=== PATIENT | female | born 1970 | race Caucasian/White ===

== ENCOUNTER → 2021-06-29 | Outpatient (CLI) | payer BC ==
[~2021-06-29] MED LIST: ALLEGRA ALLERG180 MG PO; Amaryl1 MG PO; BUDE10.22 INH; CETI5 PO; GLIM2 PO; META800 PO; MONT10T PO; PROAIR RESPICL90 MCG INH; Pyridium100 MG PO
== END | disposition home or self-care (01) ==
LOC: LAB 07:05 → LAB SHORT 07:05
DX: N76.0 Acute vaginitis (principal); N39.0 Urinary tract infection, site not specified
CPT/HCPCS: 87086

== ENCOUNTER → 2023-12-25 | Outpatient (CLI) | payer OTHER ==
[2024-01-10 11:41] LABS: HPV HIGH RISK BY TMA Not Detected; HPV SOURCE Cervical
== END ==
LOC: LAB 08:45 → LAB SHORT 08:45
PROVIDERS: Family Medicine
DX: Z01.419 Encounter for gynecological examination (general) (routine) without abnormal findings (principal)
CPT/HCPCS: 87624; G0123

== ENCOUNTER → 2024-09-02 | Outpatient (CLI) | payer OTHER ==
[2024-09-02 12:58] LABS: Adenovirus F 40/41 Not Detected (NOT DETECT); Astrovirus Not Detected (NOT DETECT); Campylobacter Sp Not Detected (NOT DETECT); Cryptosporidium Not Detected (NOT DETECT); Cyclospora Cayetanensis Not Detected (NOT DETECT); E. Coli O157 Not Detected (NOT DETECT); Entamoeba Histolytica Not Detected (NOT DETECT); Enteroaggregative E. coli-EAEC Not Detected (NOT DETECT); Enteropathogenic E. coli-EPEC Not Detected (NOT DETECT); Enterotoxigenic E. coli-ETEC Not Detected (NOT DETECT); Giardia Lamblia Not Detected (NOT DETECT); Norovirus GI/GII Not Detected (NOT DETECT); Plesiomonas Shigelloides Not Detected (NOT DETECT); Rotavirus A Not Detected (NOT DETECT); Salmonella Sp Not Detected (NOT DETECT); Sapovirus Not Detected (NOT DETECT); Shiga Toxin-prod E. coli-STEC Not Detected (NOT DETECT); Shigella/Enteroin E. coli-EIEC Not Detected (NOT DETECT); Vibrio Cholerae Not Detected (NOT DETECT); Vibrio Sp Not Detected (NOT DETECT); Yersinia Enterocolitica Not Detected (NOT DETECT)
== END ==
LOC: LAB 07:14 → LAB SHORT 07:14
PROVIDERS: Internal Medicine
DX: R19.7 Diarrhea, unspecified (principal)
CPT/HCPCS: 87507

== ENCOUNTER 2025-01-26 16:14 | Emergency (ER) | payer OTHER ==
[~2025-01-26] VITALS: Ht 162.6 cm; Wt 129.3 kg
[2025-01-26] MEDS ORDERED: Ondansetron HCl 2 MG / ML 2ML Vial IV PRN (16:25)
[2025-01-26 16:35] LABS: Hematocrit 40.7 % (33.0-51.0); Hemoglobin 12.8 g/dL (11.5-16.0); Mean Corpuscular HGB Conc 31.4 g/dL (31.5-36.5); Mean Corpuscular Volume 84 fL (80-100); NRBC ABSOLUTE 0.00 K/mm3 (0.00-0.02); NRBC Auto 0.0 /100 WBC (0.0-0.2); Platelet Count 184 K/mm3 (150-400); RDW Coefficient Variation 15.1 % (11.7-14.2); RDW Standard Deviation 46.2 fL (35.1-46.3)
[2025-01-26] MEDS ORDERED: FentaNYL Citrate 50 MCG/ML 2 ML Injection IV ONE ×2 (16:35→17:45)
[2025-01-26] MEDS ORDERED: Lidocaine 2% Viscous Soln 15 ML UDC PO ONE ×2 (16:35→19:25)
[2025-01-26] MEDS ORDERED: Pantoprazole Sodium 40 MG Injection IV ONE (16:35)
[2025-01-26 16:59] LABS: Alanine Aminotransfer (ALT/SGP 29.0 U/L (12-78); Albumin, Blood 3.8 g/dL (3.4-5.0); Albumin/Globulin Ratio 1.2 (0.8-1.8); Anion Gap 5.0 mmol/L (3-11); Aspartate Aminotrans (AST/SGOT 45.0 U/L (12-37); Bilirubin, Total 0.4 mg/dL (0.1-1.0); Blood Urea Nitrogen 19.0 mg/dL (8-24); CO2, Blood 28.0 mmol/L (21-32); Calcium, Blood 8.8 mg/dL (8.5-10.1); Chloride, Blood 108.0 mmol/L (98-108); Creatinine, Blood 0.98 mg/dL (0.40-1.00); Globulin, Blood 3.2 g/dL (2.2-4.0); Glucose, Blood 126.0 mg/dL (70-99); Potassium, Blood 4.0 mmol/L (3.5-5.5); Sodium, Blood 137.0 mmol/L (136-145); Total Protein, Blood 7.0 g/dL (6.4-8.2)
[2025-01-26] MEDS ORDERED: Metoclopramide HCl 5MG / ML 2ML Vial IV ONE (17:25)
[2025-01-26 17:27] LABS: BASOPHILS ABSOLUTE MAN 0.22 K/mm3 (0.00-0.23); BASOPHILS PERCENT MAN 2 % (0-2); EOSINOPHILS ABSOLUTE MAN 0.22 K/mm3 (0.00-0.68); EOSINOPHILS PERCENT MAN 2 % (0-6); LYMPHOCYTES ABSOLUTE MAN 3.47 K/mm3 (0.84-5.20); LYMPHOCYTES PERCENT MAN 31 % (21-46); MONOCYTES ABSOLUTE MAN 0.44 K/mm3 (0.16-1.47); MONOCYTES PERCENT MAN 4 % (4-13); NEUTROPHILS ABSOLUTE MAN 6.84 K/mm3 (1.96-9.15); SEG NEUTROPHILS PERCENT MAN 61 % (41-73)
[2025-01-26] MEDS ORDERED: Haloperidol Lactate Inj. 5 MG/ML Injection IV ONE (17:45)
[2025-01-26 18:17] VITALS: BP 161/80
[2025-01-26] MEDS ORDERED: Protonix40 MG PO (19:55)
[2025-01-26] MEDS ORDERED: ONDA4ODT MM (19:55)
[2025-01-26] MEDS ORDERED: RX Prepack 2 Tabs Ondansetron ODT 4MG UD ONE (20:05)
== END 2025-01-26 20:26 | disposition home or self-care (01) ==
LOC: ER 16:14
PROVIDERS: Emergency Medicine
DX: R16.1 Splenomegaly, not elsewhere classified (principal); R59.0 Localized enlarged lymph nodes; R11.2 Nausea with vomiting, unspecified; Z79.51 Long term (current) use of inhaled steroids; Z79.899 Other long term (current) drug therapy; Z88.2 Allergy status to sulfonamides; Z88.0 Allergy status to penicillin; Z91.040 Latex allergy status; Z91.048 Other nonmedicinal substance allergy status
CPT/HCPCS: 71046; 74177; 80053; 83690; 84484; 85025; 93005; 93010; 96374-59; 96375; 96376; 99285-25; A9270; J2405; J2470; J2765; J3010; Q9967

== ENCOUNTER 2025-02-27 10:36 | Day surgery (SDC) | payer OTHER ==
[~2025-02-27 10:36] MED LIST changes: +ONDA4ODT MM; +Protonix40 MG PO
--- NOTE | 2025-02-27 12:59 | NUR ---
11:53 PT TRANSPORTED TO RADIOLOGY RECOVERY AREA BY BED OPERATOR. PT A&OX4, DENIES PAIN, ABLE TO MOVE SELF ON GURNEY. LCTAB, HRR. 11:55 - BP 127/64, HR 78, O2 94% ORA, TEMP 97.3, RR 20. PT DENIES DIZZINESS, LIGHTHEADEDNESS, OR SOB. RATES PAIN 1/10 AND DESCRIBES IT A "DULL ACHE". BAND-AID INTACT WITH ONE PINPOINT SPOT OF SHADOWING. ABDOMEN SOFT. 12:10 - BP 120/73, HR 76, O2 95% ORA, TEMP 97.2, RR 20. PT STATES PAIN UNCHANGED. 12:25 - BP 122/83, HR 76, O2 94% ORA, TEMP 97.5, RR 20. DISCHARGE INSTRUCTIONS GIVEN, PT AND SPOUSE VERBALIZE UNDERSTANDING. PRINTED COPY PROVIDED. SPOUSE IS PROVIDING TRANSPORTATION HOME. PT REQUESTED TO WALK TO PRIVATE CAR INSTEAD OF BEING TRANSPORTED BY WHEELCHAIR. SHE WAS ABLE TO STAND AND WALK UNASSISTED, NO DIFFICULTIES WITH GAIT OR BALANCE.
== END 2025-02-27 23:00 | disposition home or self-care (01) ==
LOC: CT 10:36
DX: C85.13 Unspecified B-cell lymphoma, intra-abdominal lymph nodes (principal); E11.9 Type 2 diabetes mellitus without complications; E78.5 Hyperlipidemia, unspecified; J45.909 Unspecified asthma, uncomplicated; K21.9 Gastro-esophageal reflux disease without esophagitis; Z88.0 Allergy status to penicillin; Z88.2 Allergy status to sulfonamides; Z88.8 Allergy status to other drugs, medicaments and biological substances; Z91.040 Latex allergy status; Z91.048 Other nonmedicinal substance allergy status; Z79.899 Other long term (current) drug therapy; Z79.4 Long term (current) use of insulin
CPT/HCPCS: 49180; 77012; 88305; 88341; 88342

== ENCOUNTER 2025-03-21 06:38 | Day surgery (SDC) | payer OTHER ==
[2025-03-21] VITALS (10 sets, daily range): BP systolic 120–144; BP diastolic 74–96
[~2025-03-21] VITALS: Ht 165.1 cm; Wt 126.3 kg
[~2025-03-21 06:38] MED LIST changes: +BASAGLAR K100 UNIT/3 SC; -BUDE10.22 INH; +CODACE30 PO; +CeFAZolin Sodium 3,000 MG in NS 100 ML IV SCH; +METO50ER PO; +SYMBICORT 80-10.2 GM INH; +TIZA4 PO; +TRULICITY0.75 MG/01 SC
[2025-03-21] MEDS ORDERED: OMEP20ER PO (06:51)
--- NOTE | 2025-03-21 07:17 | NUR ---
History, Chart, Medications and Allergies reviewed before start of procedure. Pre-Op teaching done. Pt verbalizes understanding. Patient confirms NPO status and agrees with scheduled surgery. PT SPOUSE AT BS. PT SPOUSE WILL TAKE BELONGINGS BAG. PT GLASSES PLACED IN PACU.
[2025-03-21] MEDS ORDERED: Bupivacaine 0.5% HCl 5 MG/ML 30MLVIAL ONE (07:30)
[2025-03-21] MEDS ORDERED: FentaNYL Citrate 50 MCG/ML 2 ML Injection ONE (07:55)
[2025-03-21] MEDS ORDERED: Rocuronium Bromide 10 MG/ML 5ML Injection IV ONE ×2 (07:57)
[2025-03-21] MEDS ORDERED: Dexamethasone Sod Phos 10 MG/ML 1ML VIAL ONE (08:08)
[2025-03-21] MEDS ORDERED: HYDROmorphone HCl/Pf 1MG SYR IV PRN (08:25)
[2025-03-21] MEDS ORDERED: Ondansetron HCl 2 MG / ML 2ML Vial IV PRN (08:25)
[2025-03-21] MEDS ORDERED: FentaNYL Citrate 50 MCG/ML 2 ML Injection IV PRN (08:30)
[2025-03-21] MEDS ORDERED: Ketorolac Tromethamine 30mg Vial ONE (09:16)
[2025-03-21] MEDS ORDERED: Sugammadex Sodium 200 MG/2ML SDV (100 MG/ML) ONE ×2 (09:16→09:33)
[2025-03-21] MEDS ORDERED: Ondansetron HCl 2 MG / ML 2ML Vial ONE (09:16)
[2025-03-21] MEDS ORDERED: HYDROcodone 5-APAP 325 TAB PO PRN (09:35)
--- NOTE | 2025-03-21 10:00 | NUR ---
DR BLANCAS VERIFIED MEDIPORT PLACEMENT
--- NOTE | 2025-03-21 10:09 | NUR ---
REPORT RECEIVED FROM KELLI JAMES. VSS. PT ON 2L SUPPLEMENTAL O2 VIA NC. PT A&OX4. PT ABLE TO REPOSITION SELF IN BED. PT REQUESTING PO FLUIDS AND TOLERATING THEM WELL. PT HAS STERI STRIPS TO BILAT SIDE OF NECK EACH HAVE DRIED BLOOD NOTED. PT ALSO HAS GAUZE/TEGADERM TO LEFT CHEST THAT IS CDI. PT REPORTS HEADACHE, DENIES NAUSEA OR OTHER COMPLAINTS. PT SPOUSE AT BEDSIDE.
[2025-03-21] MEDS ORDERED: Ipratropium/Albuterol SulF 2.5-0.5MG/3 ML Amp INH ONE (10:50)
[2025-03-21] MEDS ORDERED: Ipratropium/Albuterol SulF 2.5-0.5MG/3 ML Amp ONE (10:51)
--- NOTE | 2025-03-21 11:21 | NUR ---
PT REPORTS FEELING MORE AWAKE, IS TIRED AND THINKS SHE WOULD LIKE TO GO HOME AND REST THERE. TOLERATING PAIN WITH ICE PACK TO INCISION; GUAZE IS C/D/I AND STERI STRIP ON NECK HAS DRIED BLOOD ON IT.
--- NOTE | 2025-03-21 11:32 | NUR ---
Patient up to Ambulate independently. Gait steady. Discharged via wheelchair to private car for ride home. Has discharge instructions that were reviewed with by ERIKA Muro. Has ice pack.
== END 2025-03-21 11:34 | disposition home or self-care (01) ==
LOC: ORSCMMR 06:38 → ORD 09:45 → ORSCMMR 11:34
PROVIDERS: Surgery
PROC: 0JH60WZ Insertion of Totally Implantable Vascular Access Device into Chest Subcutaneous Tissue and Fascia, Open Approach (ICD-10-PCS; principal; 2025-03-21 08:00)
DX: C83.30 Diffuse large B-cell lymphoma, unspecified site (principal); E11.9 Type 2 diabetes mellitus without complications; Z68.42 Body mass index [BMI] 45.0-49.9, adult; Z79.4 Long term (current) use of insulin; E78.5 Hyperlipidemia, unspecified; G47.33 Obstructive sleep apnea (adult) (pediatric); E66.9 Obesity, unspecified; K21.9 Gastro-esophageal reflux disease without esophagitis; Z79.899 Other long term (current) drug therapy
CPT/HCPCS: 77001; C1788; J0690; J1100; J1642; J1885; J2405; J2704; J3010; J7120